=== PATIENT | female | born 1975 | race Caucasian/White ===

== ENCOUNTER 2018-03-12 02:38 | Inpatient (IN) | payer BC ==
[2018-03-12] MEDS ORDERED: KETOROLAC 30 MG INJ IV (06:16)
[2018-03-12] MEDS: KETOROLAC 30 MG INJ IM (07:10)
[2018-03-12 07:25] LABS: ADD MAN DIFF? NO
[2018-03-12 07:32] LABS: ABNORMAL IP MESSAGE 1; BASOPHILS % 0.5 % (0.0-2.0); EOSINOPHILS # 0.1 10^3/ul (0.0-0.5); EOSINOPHILS % 0.8 % (0.0-7.0); HEMATOCRIT 25.2 % (37.0-47.0); LYMPHOCYTES # 2.5 10^3/ul (0.8-2.9); LYMPHOCYTES % 33.3 % (15.0-51.0); MEAN CORPUSCULAR HEMOGLOBIN 19.6 pg (29.0-33.0); MEAN CORPUSCULAR HGB CONC 27.4 g/dl (32.0-37.0); MEAN CORPUSCULAR VOLUME 71.6 fl (82.0-101.0); MEAN PLATELET VOLUME 11.1 fl (7.4-10.4); MONOCYTE # 0.4 10^3/ul (0.3-0.9); MONOCYTES % 5.5 % (0.0-11.0); NEUTROPHIL # 4.5 10^3/ul (1.6-7.5); NEUTROPHILS % 59.6 % (39.0-77.0); PLATELET COUNT 398 10^3/UL (140-415); RED BLOOD COUNT 3.52 10^6/ul (4.20-5.40); RED CELL DISTRIBUTION WIDTH 17.3 % (11.5-14.5)
[2018-03-12 07:32] LABS: WHITE BLOOD COUNT 7.5 10^3/ul (4.8-10.8)
[2018-03-12 07:34] LABS: POSITIVE DIFF @See below
[2018-03-12 07:37] LABS: HEMOGLOBIN 6.9 g/dl (12.0-16.0); PATH REVIEW? YES
[2018-03-12 07:48] LABS: ALANINE AMINOTRANSFERASE 22 IU/L (13-69); ALBUMIN 3.8 g/dl (3.3-4.9); ALBUMIN/GLOBULIN RATIO 1.11; ALKALINE PHOSPHATASE 61 IU/L (42-121); ANION GAP 13 (8-16); ASPARTATE AMINO TRANSFERASE 15 IU/L (15-46); BILIRUBIN,INDIRECT 0.2 mg/dl (0-1.1); BILIRUBIN,TOTAL 0.2 mg/dl (0.2-1.3); BLOOD UREA NITROGEN 15 mg/dl (7-20); CALCIUM 8.8 mg/dl (8.4-10.2); CARBON DIOXIDE 25 mmol/L (21-31); CHLORIDE 113 mmol/L (97-110); CREATININE 0.67 mg/dl (0.44-1.00); GLUCOSE 107 mg/dl (70-220); POTASSIUM 4.6 mmol/L (3.5-5.1); SODIUM 146 mmol/L (135-144); TOTAL PROTEIN 7.2 g/dl (6.1-8.1)
[2018-03-12] MEDS: SOD CHLORIDE 0.9% 250 ML IV (07:48)
[2018-03-12 07:54] LABS: ADD UMIC YES; UR ASCORBIC ACID NEGATIVE (NEGATIVE); UR BACTERIA FEW /HPF (NONE SEEN); UR BILIRUBIN (Dip) NEGATIVE (NEGATIVE); UR BLOOD (Dip) 3+ mg/dL (NEGATIVE); UR CLARITY CLEAR (CLEAR); UR COLOR STRAW (YELLOW); UR GLUCOSE (Dip) NEGATIVE (NEGATIVE); UR KETONES (Dip) NEGATIVE (NEGATIVE); UR LEUKOCYTE ESTERASE (Dip) NEGATIVE Leu/ul (NEGATIVE); UR NITRITE (Dip) NEGATIVE (NEGATIVE); UR RBC 53 /HPF (0-5); UR SPECIFIC GRAVITY (Dip) 1.005 (1.003-1.030); UR TOTAL PROTEIN (Dip) NEGATIVE (NEGATIVE); UR UROBILINOGEN (Dip) NEGATIVE (NEGATIVE); UR WBC 1 /HPF (0-5)
[2018-03-12 09:31] LABS: IMMEDIATE SPIN CROSSMATCH 1 2
[2018-03-12] MEDS ORDERED: ONDANSETRON 4 MG INJ IV ×3 (10:30→14:30)
[2018-03-12] MEDS ORDERED: ACETAMINOPHEN 325 MG TAB PO ×2 (10:30→12:00)
[2018-03-12] MEDS ORDERED: morphine LIQ (10 MG/5 ML) CUP PO (12:00)
[2018-03-12] MEDS ORDERED: ZOLPIDEM 5 MG TAB PO (12:00)
[2018-03-12] MEDS ORDERED: MAGNESIUM HYDROXIDE 30ML CUP PO (12:00)
[2018-03-12] MEDS ORDERED: NACL 0.9% 3 ML SYG IV (12:00)
[2018-03-12] MEDS ORDERED: FENTAnyl 50 MCG/ML VIAL (14:11)
[2018-03-12] MEDS ORDERED: MIDAZOLAM 1 MG/ML 2 ML INJ (14:11)
[2018-03-12] MEDS ORDERED: PROPOFOL 20 ML (14:11)
[2018-03-12] MEDS ORDERED: CEFAZOLIN 1 GM INJ (14:11)
[2018-03-12] MEDS ORDERED: MEPERIDINE 25 MG INJ IV (14:30)
[2018-03-12] MEDS ORDERED: DIPHENHYDRAMINE 50 MG INJ IV (14:30)
[2018-03-12] MEDS ORDERED: OXYCODONE/ACETAMINOPHEN (5/325) TAB PO (14:30)
[2018-03-12] MEDS ORDERED: EPHEDrine SULFATE 50 MG/5 ML SYG IV (14:30)
[2018-03-12] MEDS ORDERED: HYDROmorphONE (0.2 MG/ML) 10ML SYG IV ×2 (14:30)
[2018-03-12] MEDS ORDERED: METOCLOPRAMIDE 10 MG INJ IV (14:30)
[2018-03-12] MEDS ORDERED: FENTAnyl 50 MCG/ML VIAL IV ×3 (14:30)
[2018-03-12] MEDS ORDERED: hydrALAzine 20 MG INJ IV (14:30)
[2018-03-12] MEDS ORDERED: LABETALOL HCL 20MG INJ IV (14:30)
[2018-03-12] MEDS ORDERED: ONDANSETRON 4 MG INJ (14:39)
[2018-03-12] MEDS ORDERED: METOCLOPRAMIDE 10 MG INJ (14:40)
[2018-03-12] MEDS ORDERED: DEXAMETHASONE 4 MG/ML 1 ML INJ (14:40)
[2018-03-12] MEDS ORDERED: KETOROLAC 30 MG INJ (14:40)
[2018-03-12] MEDS ORDERED: IBUPROFEN 600 MG TAB PO (15:30)
[2018-03-12] MEDS: HYDROmorphONE (0.2 MG/ML) 10ML SYG IV (15:50)
[2018-03-12] MEDS: DOCUSATE SODIUM 100 MG CAP PO (20:41)
[2018-03-12] MEDS: HYDROCODONE/APAP (5/325) TAB PO (23:34)
[2018-03-13 06:15] LABS: ADD MAN DIFF? NO
[2018-03-13 06:17] LABS: BASOPHILS % 0.2 % (0.0-2.0); HEMATOCRIT 29.8 % (37.0-47.0); LYMPHOCYTES % 18.5 % (15.0-51.0); MEAN CORPUSCULAR HEMOGLOBIN 22.6 pg (29.0-33.0); MEAN CORPUSCULAR HGB CONC 30.2 g/dl (32.0-37.0); MEAN CORPUSCULAR VOLUME 74.7 fl (82.0-101.0); MONOCYTE # 0.5 10^3/ul (0.3-0.9); MONOCYTES % 4.7 % (0.0-11.0); NEUTROPHIL # 8.4 10^3/ul (1.6-7.5); NEUTROPHILS % 76.1 % (39.0-77.0); PLATELET COUNT 376 10^3/UL (140-415); RED BLOOD COUNT 3.99 10^6/ul (4.20-5.40); RED CELL DISTRIBUTION WIDTH 18.2 % (11.5-14.5)
[2018-03-13 06:58] LABS: ANION GAP 13 (8-16); BLOOD UREA NITROGEN 13 mg/dl (7-20); CALCIUM 8.7 mg/dl (8.4-10.2); CARBON DIOXIDE 22 mmol/L (21-31); CHLORIDE 111 mmol/L (97-110); CREATININE 0.62 mg/dl (0.44-1.00); GLUCOSE 106 mg/dl (70-220); MAGNESIUM 2.1 mg/dl (1.7-2.5); PHOSPHORUS 3.3 mg/dl (2.5-4.9); POTASSIUM 4.2 mmol/L (3.5-5.1); SODIUM 142 mmol/L (135-144)
[2018-03-13 07:04] LABS: FREE THYROXINE INDEX (Calc) 3.46 ug/ml (0.65-3.89); T3 UPTAKE 34.9 % (23.5-40.5); T4 (THYROXINE) 9.9 ug/dl (5.5-11.0)
[2018-03-13 07:06] LABS: HEMOGLOBIN A1C 5.6 % (0-5.9)
[2018-03-13 07:34] LABS: IRON 69 ug/dl (35-150)
[2018-03-13 07:43] LABS: % IRON SATURATION 15 % SAT (22-52); TOTAL IRON BINDING CAPACITY 448 ug/dl (241-421)
[2018-03-13] MEDS: LORATADINE 10 MG TAB PO (08:07)
[2018-03-13] MEDS: HYDROCHLOROTHIAZIDE 25 MG TAB PO ×2 (08:08→11:07)
[2018-03-13] MEDS: AMLODIPINE 10 MG TAB PO ×2 (08:08→11:07)
== END 2018-03-13 14:20 | disposition home or self-care (01) | DRG 742 ==
LOC: FTE 02:38 → SDS 13:30 → MS2 18:00
PROC: 0UDB8ZX Extraction of Endometrium, Via Natural or Artificial Opening Endoscopic, Diagnostic (ICD-10-PCS; principal; 2018-03-12 12:15)
PROC: 0U5B8ZZ Destruction of Endometrium, Via Natural or Artificial Opening Endoscopic (ICD-10-PCS; 2018-03-12 12:15)
PROC: 30233N1 Transfusion of Nonautologous Red Blood Cells into Peripheral Vein, Percutaneous Approach (ICD-10-PCS; 2018-03-12 14:08)
DX: N93.8 Other specified abnormal uterine and vaginal bleeding (principal); E87.0 Hyperosmolality and hypernatremia; N92.0 Excessive and frequent menstruation with regular cycle; N84.0 Polyp of corpus uteri; I10 Essential (primary) hypertension; D50.9 Iron deficiency anemia, unspecified
CPT/HCPCS: 36415; 36430; 76830; 76856; 80048; 80053; 81001; 81025; 83036; 83540; 83735; 84100; 84436; 84479; 85025; 86644; 86850; 86900; 86901; 86920; 88305; 93005; 96372; 96374; 99285-25

== ENCOUNTER 2018-07-16 23:58 | Emergency (ER) | payer BC ==
[2018-07-17 02:02] LABS: ADD MAN DIFF? NO
[2018-07-17] MEDS: SOD CHLORIDE 0.9% 500 ML IV (02:04)
[2018-07-17] MEDS: morphine 4 MG/ML VIAL IV (02:04)
[2018-07-17] MEDS: ONDANSETRON 4 MG INJ IV (02:04)
[2018-07-17 02:05] LABS: WHITE BLOOD COUNT 14.2 10^3/ul (4.8-10.8)
[2018-07-17 02:05] LABS: BASOPHIL # 0.1 10^3/ul (0.0-0.1); BASOPHILS % 0.4 % (0.0-2.0); EOSINOPHILS # 0.1 10^3/ul (0.0-0.5); EOSINOPHILS % 0.7 % (0.0-7.0); HEMATOCRIT 37.3 % (37.0-47.0); HEMOGLOBIN 11.5 g/dl (12.0-16.0); LYMPHOCYTES # 2.4 10^3/ul (0.8-2.9); MEAN CORPUSCULAR HEMOGLOBIN 24.5 pg (29.0-33.0); MEAN CORPUSCULAR HGB CONC 30.8 g/dl (32.0-37.0); MEAN CORPUSCULAR VOLUME 79.4 fl (82.0-101.0); MEAN PLATELET VOLUME 10.9 fl (7.4-10.4); MONOCYTE # 0.6 10^3/ul (0.3-0.9); MONOCYTES % 4.5 % (0.0-11.0); NEUTROPHIL # 10.9 10^3/ul (1.6-7.5); NEUTROPHILS % 76.8 % (39.0-77.0); PLATELET COUNT 309 10^3/UL (140-415); RED CELL DISTRIBUTION WIDTH 17.4 % (11.5-14.5)
[2018-07-17 02:29] LABS: ADD UMIC YES; UR ASCORBIC ACID NEGATIVE (NEGATIVE); UR BACTERIA FEW /HPF (NONE SEEN); UR BILIRUBIN (Dip) NEGATIVE (NEGATIVE); UR BLOOD (Dip) 3+ mg/dL (NEGATIVE); UR CLARITY SLIGHTLY CLOUDY (CLEAR); UR COLOR RED (YELLOW); UR GLUCOSE (Dip) NEGATIVE (NEGATIVE); UR KETONES (Dip) NEGATIVE (NEGATIVE); UR LEUKOCYTE ESTERASE (Dip) 1+ Leu/ul (NEGATIVE); UR NITRITE (Dip) NEGATIVE (NEGATIVE); UR RBC > 182 /HPF (0-5); UR SPECIFIC GRAVITY (Dip) 1.009 (1.003-1.030); UR SQUAMOUS EPITHELIAL CELL FEW /HPF (FEW); UR TOTAL PROTEIN (Dip) 1+ mg/dl (NEGATIVE); UR UROBILINOGEN (Dip) NEGATIVE (NEGATIVE); UR WBC 12 /HPF (0-5)
[2018-07-17 02:34] LABS: ALANINE AMINOTRANSFERASE 25 IU/L (13-69); ALBUMIN 3.6 g/dl (3.3-4.9); ALKALINE PHOSPHATASE 60 IU/L (42-121); ANION GAP 14 (8-16); ASPARTATE AMINO TRANSFERASE 16 IU/L (15-46); BILIRUBIN,INDIRECT 0.2 mg/dl (0-1.1); BILIRUBIN,TOTAL 0.2 mg/dl (0.2-1.3); BLOOD UREA NITROGEN 14 mg/dl (7-20); CALCIUM 9.2 mg/dl (8.4-10.2); CARBON DIOXIDE 25 mmol/L (21-31); CHLORIDE 105 mmol/L (97-110); CREATININE 0.71 mg/dl (0.44-1.00); GLUCOSE 115 mg/dl (70-220); LIPASE 105 U/L (23-300); POTASSIUM 4.3 mmol/L (3.5-5.1); SODIUM 140 mmol/L (135-144); TOTAL PROTEIN 7.2 g/dl (6.1-8.1)
[2018-07-17] MEDS: CEFTRIAXONE 1 GM/50 ML (PMX) 50 ML IVPB (04:36)
== END 2018-07-17 05:22 | disposition home or self-care (01) ==
LOC: FTE 23:58
DX: N12 Tubulo-interstitial nephritis, not specified as acute or chronic (principal); I10 Essential (primary) hypertension
CPT/HCPCS: 36415; 74176; 80053; 81001; 83690; 85025; 96361; 96365; 96375; 99285-25